=== PATIENT | male | born 1970 ===

== ENCOUNTER → 2019-03-31 | Outpatient (CLI) | payer OTHER ==
[~2019-03-31] MED LIST: ASPI81CH PO; ATOR10 PO; Azor 10-40 MG1 EACH PO; COLCHICINE0.6 MG PO; FURO40 PO; GABA300 PO; HYDACE5 PO; IBUP800 PO; METF500 PO; METO25ER PO; OXYACE5T PO; PENVK500 PO; PROB500 PO; PROM25 PO
[2019-03-31 12:06] LABS: Creatinine Urine 80.5 mg/dL (27.00-270.00); Protein, Urine Quantitative 5.4 mg/dL (0.0-11.9)
[2019-03-31 12:08] LABS: Microalbumin, Urine Quant. 6.82 mg/L (0.000-20.000)
== END | disposition home or self-care (01) ==
LOC: LAB SHORT 10:57 → LAB 10:57
PROVIDERS: Internal Medicine Nephrology
DX: N18.2 Chronic kidney disease, stage 2 (mild) (principal); D63.1 Anemia in chronic kidney disease; N25.81 Secondary hyperparathyroidism of renal origin; E55.9 Vitamin D deficiency, unspecified; E78.00 Pure hypercholesterolemia, unspecified; R76.9 Abnormal immunological finding in serum, unspecified; R94.5 Abnormal results of liver function studies; R94.6 Abnormal results of thyroid function studies; G60.9 Hereditary and idiopathic neuropathy, unspecified; D51.8 Other vitamin B12 deficiency anemias; D52.8 Other folate deficiency anemias; D50.9 Iron deficiency anemia, unspecified
CPT/HCPCS: 81050; 82043; 82570; 84156; 86335

== ENCOUNTER 2019-04-13 08:48 | Emergency (ER) | payer OTHER ==
[~2019-04-13] VITALS: Ht 180.3 cm; Wt 158.8 kg
[~2019-04-13 08:48] MED LIST changes: -ASPI81CH PO; -ATOR10 PO; -Azor 10-40 MG1 EACH PO; -COLCHICINE0.6 MG PO; -FURO40 PO; -GABA300 PO; -METF500 PO; -METO25ER PO; -PROB500 PO
[2019-04-13 09:48] LABS: BASOPHILS ABSOLUTE AUTO 0.05 K/mm3 (0.00-0.23); BASOPHILS PERCENT AUTO 1 % (0-2); EOSINOPHILS ABSOLUTE AUTO 0.16 K/mm3 (0.00-0.68); EOSINOPHILS PERCENT AUTO 2 % (0-6); Hemoglobin 16.8 g/dL (13.5-17.5); IMMATURE GRAN ABSOLUTE AUTO 0.02 K/mm3 (0.00-0.10); IMMATURE GRAN PERCENT AUTO 0 % (0-1); LYMPHOCYTES ABSOLUTE AUTO 1.58 K/mm3 (0.84-5.20); LYMPHOCYTES PERCENT AUTO 18 % (21-46); MONOCYTES ABSOLUTE AUTO 0.77 K/mm3 (0.16-1.47); MONOCYTES PERCENT AUTO 9 % (4-13); Mean Corpuscular Volume 94 fL (80-100); Mean Platelet Volume 9.3 fL (9.1-12.4); NEUTROPHILS ABSOLUTE AUTO 6.03 K/mm3 (1.96-9.15); NEUTROPHILS PERCENT AUTO 70 % (41-73); Platelet Count 240 K/mm3 (150-400); RDW Coefficient Variation 12.8 % (11.7-14.2); RDW Standard Deviation 44.3 fL (35.1-46.3); Red Blood Cell Count 5.09 M/mm3 (4.30-5.90); White Blood Cell Count 8.61 K/mm3 (4.00-11.30)
[2019-04-13 10:12] LABS: Albumin, Blood 4.5 g/dL (3.4-5.0); Albumin/Globulin Ratio 1.1 (0.8-1.8); Bilirubin, Total 0.9 mg/dL (0.1-1.0); Bun/Creatinine Ratio 17.6 (12.0-20.0); Calcium, Blood 9.8 mg/dL (8.5-10.1); Creatinine, Blood 1.36 mg/dL (0.60-1.20); Globulin, Blood 4.2 g/dL (2.2-4.0); Potassium, Blood 3.8 mmol/L (3.5-5.5); Total Protein, Blood 8.7 g/dL (6.4-8.2)
[2019-04-13] MEDS ORDERED: ASPI81CH PO (10:14)
[2019-04-13] MEDS ORDERED: Azor 10-40 MG1 EACH PO (10:14)
[2019-04-13] MEDS ORDERED: ATOR10 PO (10:15)
[2019-04-13] MEDS ORDERED: COLCHICINE0.6 MG PO (10:15)
[2019-04-13] MEDS ORDERED: GABA300 PO (10:15)
[2019-04-13] MEDS ORDERED: FURO40 PO (10:16)
[2019-04-13] MEDS ORDERED: METF500 PO (10:17)
[2019-04-13] MEDS ORDERED: PROB500 PO (10:17)
[2019-04-13] MEDS ORDERED: METO25ER PO (10:17)
== END 2019-04-13 13:25 | disposition home or self-care (01) ==
LOC: ER 08:48
PROVIDERS: Physician Assistant
DX: N23 Unspecified renal colic (principal); M10.9 Gout, unspecified; F17.210 Nicotine dependence, cigarettes, uncomplicated; Z87.442 Personal history of urinary calculi
CPT/HCPCS: 36415; 74176; 80053; 83690; 85025; 96374; 96375; 99284-25; J1170; J1885; J2405

== ENCOUNTER → 2019-10-28 | Outpatient (CLI) | payer OTHER ==
[~2019-10-28] MED LIST changes: +ASPI81CH PO; +ATOR10 PO; +Azor 10-40 MG1 EACH PO; +COLCHICINE0.6 MG PO; +EUTHYROX88 MCG; +FURO40 PO; +Flomax0.4 MG PO; +GABA300 PO; +METF500 PO; +METO25ER PO; +PROB500 PO; +Percocet 5-3251 EACH PO
[2019-10-28 12:01] LABS: Phosphorus, Urine 57.2 mg/dL (20.0-60.0)
[2019-10-28 12:09] LABS: Uric Acid, Urine 40.2 mg/dL (7.5-49.5)
[2019-10-28 12:12] LABS: Microalbumin, Urine Quant. 12.3 mg/L (0.000-20.000)
== END | disposition home or self-care (01) ==
LOC: LAB 09:01 → LAB SHORT 09:01 → LAB FUT 10-26 09:10
PROVIDERS: Internal Medicine Nephrology
DX: N18.2 Chronic kidney disease, stage 2 (mild) (principal); D63.1 Anemia in chronic kidney disease; M10.9 Gout, unspecified; N20.0 Calculus of kidney; R94.5 Abnormal results of liver function studies
CPT/HCPCS: 81050; 82043; 82131; 82507; 82570; 83945; 84105; 84133; 84300; 84560

== ENCOUNTER 2020-02-03 14:09 | Emergency (ER) | payer OTHER ==
[~2020-02-03] VITALS: Ht 180.3 cm; Wt 149.7 kg
[2020-02-03 15:28] LABS: BASOPHILS ABSOLUTE AUTO 0.05 K/mm3 (0.00-0.23); BASOPHILS PERCENT AUTO 0 % (0-2); EOSINOPHILS ABSOLUTE AUTO 0.05 K/mm3 (0.00-0.68); EOSINOPHILS PERCENT AUTO 0 % (0-6); Hematocrit 50.5 % (37.0-53.0); Hemoglobin 17.6 g/dL (13.5-17.5); IMMATURE GRAN ABSOLUTE AUTO 0.08 K/mm3 (0.00-0.10); IMMATURE GRAN PERCENT AUTO 1 % (0-1); LYMPHOCYTES ABSOLUTE AUTO 0.79 K/mm3 (0.84-5.20); LYMPHOCYTES PERCENT AUTO 5 % (21-46); MONOCYTES ABSOLUTE AUTO 1.16 K/mm3 (0.16-1.47); MONOCYTES PERCENT AUTO 7 % (4-13); Mean Corpuscular HGB 32.2 pg (26.0-34.0); Mean Corpuscular HGB Conc 34.9 g/dL (31.5-36.5); Mean Corpuscular Volume 93 fL (80-100); Mean Platelet Volume 9.2 fL (9.1-12.4); NEUTROPHILS ABSOLUTE AUTO 15.38 K/mm3 (1.96-9.15); NEUTROPHILS PERCENT AUTO 88 % (41-73); Platelet Count 233 K/mm3 (150-400); RDW Coefficient Variation 13.6 % (11.7-14.2); RDW Standard Deviation 46.1 fL (35.1-46.3); Red Blood Cell Count 5.46 M/mm3 (4.30-5.90); White Blood Cell Count 17.51 K/mm3 (4.00-11.30)
[2020-02-03 15:50] LABS: Albumin, Blood 4.2 g/dL (3.4-5.0); Bilirubin, Total 0.7 mg/dL (0.1-1.0); Bun/Creatinine Ratio 12.7 (12.0-20.0); Calcium, Blood 9.2 mg/dL (8.5-10.1); Creatinine, Blood 1.58 mg/dL (0.60-1.20); Globulin, Blood 4.3 g/dL (2.2-4.0); Potassium, Blood 4.4 mmol/L (3.5-5.5); Total Protein, Blood 8.5 g/dL (6.4-8.2)
[2020-02-03 16:38] LABS: Source, Urine Clean Catch
[2020-02-03 16:41] LABS: Bilirubin, Urine Neg (Neg); Blood, Urine 5+ (Neg); Glucose Qualitative, Urine Neg (Neg); Ketones, Urine Neg (Neg); Leukocyte Esterase, Urine Neg (Neg); Nitrite, Urine Neg (Neg); Protein, Urine 1+ (Neg); Urobilinogen, Urine NORM (Normal)
[2020-02-03 16:45] LABS: Appearance, Urine Clear (Clear); Color, Urine Yellow (P-Yellow)
[2020-02-03 16:46] LABS: Bacteria Few /hpf; Red Blood Cells, Urine 25-50 /hpf (0-2); Squamous Epithelial Cells Not Seen /hpf (Few); White Blood Cells, Urine 0-2 /hpf (0-5)
[2020-02-03 16:47] LABS: Transitional Epithelial Cells Rare /hpf (0-Rare)
[2020-02-03] MEDS ORDERED: Norco 10-325 T1 EACH PO (18:56)
== END 2020-02-03 19:20 | disposition home or self-care (01) ==
LOC: ER 14:09
PROVIDERS: Nurse Practitioner
DX: N13.2 Hydronephrosis with renal and ureteral calculous obstruction (principal); N17.9 Acute kidney failure, unspecified; M10.9 Gout, unspecified; Z79.82 Long term (current) use of aspirin; Z79.84 Long term (current) use of oral hypoglycemic drugs; Z79.899 Other long term (current) drug therapy
CPT/HCPCS: 36415; 74177; 80053; 81001; 85025; 96361; 96374-59; 96375; 99284-25; J1170; J2405; J7030; Q9967

== ENCOUNTER → 2020-04-17 | Outpatient (CLI) | payer OTHER ==
[~2020-04-17] MED LIST changes: +Norco 10-325 T1 EACH PO
== END ==
LOC: LAB SHORT 19:06 → LAB 19:06
DX: R21 Rash and other nonspecific skin eruption (principal)
CPT/HCPCS: 87071; 87075; 87102; 87205

== ENCOUNTER 2021-01-11 12:33 | Emergency (ER) | payer OTHER ==
[~2021-01-11] VITALS: Ht 180.3 cm; Wt 156.5 kg
[2021-01-11 13:08] LABS: BASOPHILS ABSOLUTE AUTO 0.03 K/mm3 (0.00-0.23); BASOPHILS PERCENT AUTO 0 % (0-2); EOSINOPHILS PERCENT AUTO 1 % (0-6); Hematocrit 45.5 % (37.0-53.0); Hemoglobin 15.9 g/dL (13.5-17.5); IMMATURE GRAN ABSOLUTE AUTO 0.06 K/mm3 (0.00-0.10); IMMATURE GRAN PERCENT AUTO 1 % (0-1); LYMPHOCYTES ABSOLUTE AUTO 1.21 K/mm3 (0.84-5.20); LYMPHOCYTES PERCENT AUTO 12 % (21-46); MONOCYTES ABSOLUTE AUTO 1.01 K/mm3 (0.16-1.47); MONOCYTES PERCENT AUTO 10 % (4-13); Mean Corpuscular HGB 31.7 pg (26.0-34.0); Mean Corpuscular HGB Conc 34.9 g/dL (31.5-36.5); Mean Corpuscular Volume 91 fL (80-100); Mean Platelet Volume 8.7 fL (9.1-12.4); NEUTROPHILS ABSOLUTE AUTO 7.33 K/mm3 (1.96-9.15); NEUTROPHILS PERCENT AUTO 75 % (41-73); Platelet Count 195 K/mm3 (150-400); RDW Coefficient Variation 13.6 % (11.7-14.2); RDW Standard Deviation 45.7 fL (35.1-46.3); Red Blood Cell Count 5.01 M/mm3 (4.30-5.90); White Blood Cell Count 9.74 K/mm3 (4.00-11.30)
[2021-01-11 13:45] LABS: Alanine Aminotransfer (ALT/SGP 54 U/L (12-78); Albumin, Blood 3.4 g/dL (3.4-5.0); Albumin/Globulin Ratio 0.8 (0.8-1.8); Alk Phos 98 U/L (50-136); Anion Gap 6 mmol/L (6-16); Aspartate Aminotrans (AST/SGOT 26 U/L (12-37); Bilirubin, Total 0.8 mg/dL (0.1-1.0); Blood Urea Nitrogen 13 mg/dL (8-24); Bun/Creatinine Ratio 11.8 (12.0-20.0); CO2, Blood 27 mmol/L (21-32); Calcium, Blood 9.3 mg/dL (8.5-10.1); Chloride, Blood 108 mmol/L (98-108); Globulin, Blood 4.5 g/dL (2.2-4.0); Glomerular Filtration Rate >60 (60-); Glucose, Blood 135 mg/dL (70-99); Sodium, Blood 141 mmol/L (136-145); Total Protein, Blood 7.9 g/dL (6.4-8.2)
[2021-01-11 16:41] LABS: Source, Urine Clean Catch
[2021-01-11 16:58] LABS: Appearance, Urine Clear (Clear); Bilirubin, Urine Neg (Neg); Blood, Urine Neg (Neg); Color, Urine Yellow (P-Yellow); Glucose Qualitative, Urine Neg (Neg); Ketones, Urine Neg (Neg); Leukocyte Esterase, Urine Neg (Neg); Nitrite, Urine Neg (Neg); Protein, Urine 2+ (Neg); Urobilinogen, Urine 1+ (Normal)
[2021-01-11 17:22] LABS: Bacteria Few /hpf; Hyaline Casts 0-2 /lpf (0-2); Red Blood Cells, Urine 0-2 /hpf (0-2); Squamous Epithelial Cells Few /hpf (Few); White Blood Cells, Urine 0-2 /hpf (0-5)
[2021-01-11] MEDS ORDERED: CEPH500 PO (17:48)
== END 2021-01-11 18:02 | disposition home or self-care (01) ==
LOC: ER 12:33
PROVIDERS: Physician Assistant
DX: N49.2 Inflammatory disorders of scrotum (principal); Z88.8 Allergy status to other drugs, medicaments and biological substances; Z79.899 Other long term (current) drug therapy; Z87.442 Personal history of urinary calculi
CPT/HCPCS: 36415; 76870; 80053; 81001; 85025; 96365; 99284-25; J0696; J7030

== ENCOUNTER → 2022-09-14 | Outpatient (CLI) | payer OTHER ==
[~2022-09-14] MED LIST changes: +CEPH500 PO
[2022-09-14 10:04] LABS: BASOPHILS ABSOLUTE AUTO 0.06 K/mm3 (0.00-0.23); BASOPHILS PERCENT AUTO 0 % (0-2); EOSINOPHILS ABSOLUTE AUTO 0.07 K/mm3 (0.00-0.68); EOSINOPHILS PERCENT AUTO 1 % (0-6); Hematocrit 45.2 % (37.0-53.0); Hemoglobin 16.1 g/dL (13.5-17.5); IMMATURE GRAN ABSOLUTE AUTO 0.09 K/mm3 (0.00-0.10); IMMATURE GRAN PERCENT AUTO 1 % (0-1); LYMPHOCYTES ABSOLUTE AUTO 1.32 K/mm3 (0.84-5.20); LYMPHOCYTES PERCENT AUTO 10 % (21-46); MONOCYTES ABSOLUTE AUTO 0.81 K/mm3 (0.16-1.47); MONOCYTES PERCENT AUTO 6 % (4-13); Mean Corpuscular HGB 32.7 pg (26.0-34.0); Mean Corpuscular HGB Conc 35.6 g/dL (31.5-36.5); Mean Corpuscular Volume 92 fL (80-100); NEUTROPHILS ABSOLUTE AUTO 11.38 K/mm3 (1.96-9.15); NEUTROPHILS PERCENT AUTO 83 % (41-73); Platelet Count 185 K/mm3 (150-400); RDW Standard Deviation 46.9 fL (35.1-46.3); Red Blood Cell Count 4.93 M/mm3 (4.30-5.90); White Blood Cell Count 13.73 K/mm3 (4.00-11.30)
[2022-09-14 10:16] LABS: Albumin, Blood 3.7 g/dL (3.4-5.0); Albumin/Globulin Ratio 0.9 (0.8-1.8); Bilirubin, Total 0.8 mg/dL (0.1-1.0); Creatinine, Blood 1.1 mg/dL (0.60-1.20); Globulin, Blood 3.9 g/dL (2.2-4.0); Total Protein, Blood 7.6 g/dL (6.4-8.2); Uric Acid, Blood 6.6 mg/dL (3.5-7.2)
[2022-09-16 16:11] LABS: ANA DIRECT Negative (Negative); ANTI-DNA (DS) AB QN 1 IU/mL (0-9); RNP ANTIBODIES <0.2 AI (0.0-0.9); SJOGREN'S ANTI-SS-A <0.2 AI (0.0-0.9); SJOGREN'S ANTI-SS-B <0.2 AI (0.0-0.9); SMITH ANTIBODIES <0.2 AI (0.0-0.9)
== END | disposition home or self-care (01) ==
LOC: LAB SHORT 10:01 → LAB 10:01
PROVIDERS: General Practice
DX: M10.9 Gout, unspecified (principal)
CPT/HCPCS: 80053; 84550; 85025; 86225; 86235

== ENCOUNTER 2023-05-15 06:19 | Day surgery (SDC) | payer OTHER ==
[~2023-05-15] VITALS: Ht 177.8 cm; Wt 157.2 kg
[~2023-05-15 06:19] MED LIST changes: +ALLO100 PO; +AMLO5 PO; +BUPROPION HCL100 MG PO; +Crestor20 MG PO; +Isosorbide Mono30 MG PO; +KETO15TC TOP; +NITR.4SL SL
[2023-05-15 07:05] VITALS: BP 172/117
--- NOTE | 2023-05-15 07:12 | NUR ---
Ambulatory in Day Surgery History, Chart, Medications and Allergies reviewed before start of procedure.Pt is poor historian and admits that he is non-compliant with his medical regime. Pt has not taken any of his meds since 05/13/23. bp 172/117. Patient confirms NPO status and agrees with scheduled surgery. Patient States Post-Procedure ride home has been arranged.
--- NOTE | 2023-05-15 07:37 | NUR ---
05/15/23 0737 Eloy Mccall ANESTHESIA PER DR. FRIED MONITOR INTACT WITH CONTINUOUS PULSE OXIMETRY, AND EKG CONTINUOUS END TITAL CO2, AND INTERMITTENT BLOOD PRESSURE.
--- NOTE | 2023-05-15 08:13 | NUR ---
REPORT RECIEVED. PT SITTING UP IN BED TOLERING PO FLUIDS. VSS N ROOM AIR
[2023-05-15 08:14] VITALS: BP 138/95
[2023-05-15 08:27] VITALS: BP 146/99
--- NOTE | 2023-05-15 08:31 | NUR ---
Patient up to Ambulate independently. Gait steady. Discharge instructions reviewed with patient AND FAMILY Patient verbalizes understanding. Copy given to patient to take home. Discharged via wheelchair to private car for ride home.
== END 2023-05-15 08:33 | disposition home or self-care (01) ==
LOC: ORSCMMR 06:19 → ORD 07:30 → ORSCMMR 08:33
PROVIDERS: Internal Medicine Gastroenterology
PROC: 0DBL8ZX Excision of Transverse Colon, Via Natural or Artificial Opening Endoscopic, Diagnostic (ICD-10-PCS; principal; 2023-05-15 07:30)
PROC: 0DBN8ZX Excision of Sigmoid Colon, Via Natural or Artificial Opening Endoscopic, Diagnostic (ICD-10-PCS; principal; 2023-05-15 07:30)
DX: Z12.11 Encounter for screening for malignant neoplasm of colon (principal); Z83.71 Family history of colonic polyps; D12.3 Benign neoplasm of transverse colon; D12.5 Benign neoplasm of sigmoid colon; R06.02 Shortness of breath; R93.1 Abnormal findings on diagnostic imaging of heart and coronary circulation; E78.5 Hyperlipidemia, unspecified; E11.22 Type 2 diabetes mellitus with diabetic chronic kidney disease; I12.9 Hypertensive chronic kidney disease with stage 1 through stage 4 chronic kidney disease, or unspecified chronic kidney disease; N18.9 Chronic kidney disease, unspecified; G47.33 Obstructive sleep apnea (adult) (pediatric); F17.210 Nicotine dependence, cigarettes, uncomplicated; Z68.42 Body mass index [BMI] 45.0-49.9, adult; E66.01 Morbid (severe) obesity due to excess calories; Z79.82 Long term (current) use of aspirin; Z79.84 Long term (current) use of oral hypoglycemic drugs; Z79.899 Other long term (current) drug therapy
CPT/HCPCS: 82947; 88305; J2704; J7120

== ENCOUNTER → 2025-09-15 | Outpatient (CLI) | payer OTHER ==
[2025-09-15 11:24] LABS: BASOPHILS ABSOLUTE AUTO 0.06 K/mm3 (0.00-0.23); BASOPHILS PERCENT AUTO 1 % (0-2); EOSINOPHILS ABSOLUTE AUTO 0.32 K/mm3 (0.00-0.68); EOSINOPHILS PERCENT AUTO 4 % (0-6); Hematocrit 52.1 % (37.0-53.0); Hemoglobin 18.4 g/dL (13.5-17.5); IMMATURE GRAN ABSOLUTE AUTO 0.03 K/mm3 (0.00-0.10); IMMATURE GRAN PERCENT AUTO 0 % (0-1); LYMPHOCYTES ABSOLUTE AUTO 1.57 K/mm3 (0.84-5.20); LYMPHOCYTES PERCENT AUTO 19 % (21-46); MONOCYTES ABSOLUTE AUTO 0.53 K/mm3 (0.16-1.47); MONOCYTES PERCENT AUTO 6 % (4-13); Mean Corpuscular HGB Conc 35.3 g/dL (31.5-36.5); Mean Corpuscular Volume 90 fL (80-100); NEUTROPHILS ABSOLUTE AUTO 5.86 K/mm3 (1.96-9.15); NEUTROPHILS PERCENT AUTO 70 % (41-73); NRBC ABSOLUTE 0.00 K/mm3 (0.00-0.02); NRBC Auto 0.0 /100 WBC (0.0-0.2); Platelet Count 148 K/mm3 (150-400); RDW Coefficient Variation 13.9 % (11.7-14.2); RDW Standard Deviation 45.5 fL (35.1-46.3)
[2025-09-15 11:34] LABS: Alanine Aminotransfer (ALT/SGP 51.0 U/L (12-78); Albumin, Blood 3.6 g/dL (3.4-5.0); Albumin/Globulin Ratio 0.9 (0.8-1.8); Anion Gap 11.0 mmol/L (3-11); Aspartate Aminotrans (AST/SGOT 33.0 U/L (12-37); Bilirubin, Total 0.6 mg/dL (0.1-1.0); Blood Urea Nitrogen 12.0 mg/dL (8-24); CO2, Blood 26.0 mmol/L (21-32); Calcium, Blood 9.2 mg/dL (8.5-10.1); Chloride, Blood 105.0 mmol/L (98-108); Creatinine, Blood 1.12 mg/dL (0.60-1.20); Globulin, Blood 4.0 g/dL (2.2-4.0); Glucose, Blood 134.0 mg/dL (70-99); Potassium, Blood 4.3 mmol/L (3.5-5.5); Sodium, Blood 138.0 mmol/L (136-145); Total Protein, Blood 7.6 g/dL (6.4-8.2)
== END ==
LOC: LAB 11:18 → LAB SHORT 11:18
PROVIDERS: Physician Assistant
DX: R07.89 Other chest pain (principal)
CPT/HCPCS: 80053; 84484; 85025; 85379